=== PATIENT | female | born 1990 | race Caucasian/White ===

== ENCOUNTER 2022-05-05 18:48 | Emergency (ER) | payer SELFPAY ==
[~2022-05-05] VITALS: Ht 172.7 cm; Wt 73.0 kg
[2022-05-05] MEDS ORDERED: IBUP-2030 MT (19:38)
[2022-05-05] MEDS ORDERED: CYCL10TA21 MT (19:38)
[2022-05-05] MEDS ORDERED: KETOROLAC 60MG/2ML VIAL IM ONE (19:45)
[2022-05-05] MEDS ORDERED: CYCLOBENZAPRINE 10MG TABLET PO ONE (19:45)
[2022-05-05] MEDS ORDERED: TRAMADOL 50MG TABLET PO ONE (21:00)
[2022-05-05] MEDS ORDERED: TRAM50TA3 MT (22:34)
[2022-05-05 23:11] VITALS: BP 125/78
== END 2022-05-05 23:11 | disposition home or self-care (01) ==
LOC: ER 18:48
DX: S39.012A Strain of muscle, fascia and tendon of lower back, initial encounter (principal); X58.XXXA Exposure to other specified factors, initial encounter; Y93.9 Activity, unspecified
CPT/HCPCS: 96372; 99283; J1885